=== PATIENT | female | born 1980 | race Caucasian/White ===

== ENCOUNTER 2018-04-08 19:00 | Emergency (ER) | payer OTHER ==
[~2018-04-08] VITALS: Ht 162.6 cm; Wt 107.5 kg
[2018-04-08 19:12] VITALS: BP 155/96
[2018-04-08] MEDS ORDERED: KETOROLAC 60 MG/2 ML VIAL IM ONE (20:30)
[2018-04-08 21:00] VITALS: BP 150/96
== END 2018-04-08 21:00 | disposition home or self-care (01) ==
LOC: MED 19:00
DX: M54.5 Low back pain (principal); M54.2 Cervicalgia; R07.89 Other chest pain; R10.13 Epigastric pain; V89.2XXA Person injured in unspecified motor-vehicle accident, traffic, initial encounter; Y93.89 Activity, other specified; Y92.410 Unspecified street and highway as the place of occurrence of the external cause; Y99.8 Other external cause status
CPT/HCPCS: 81002; 81025; 96372; 99283; J1885

== ENCOUNTER 2019-04-22 03:50 | Emergency (ER) | payer OTHER ==
[~2019-04-22] VITALS: Ht 162.6 cm; Wt 106.6 kg
[2019-04-22 03:54] VITALS: BP 147/82
--- NOTE | 2019-04-22 04:01 | NUR ---
PT TAKEN TO BED 3
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
--- NOTE | 2019-04-22 04:15 | NUR ---
Dr. Gutiérrez examining patient.
--- NOTE | 2019-04-22 04:17 | NUR ---
REPORTED TO [place] [employer] AND SPOKEN TO [place], [place] [facility] WILL COME TO SEE THE PATIENT.
[2019-04-22] MEDS ORDERED: LIDOCAINE 2% 1000 MG/50 ML VIAL INJ ONE (04:20)
--- NOTE | 2019-04-22 04:36 | NUR ---
DR SANDY AT BEDSIDE PERFORMING PROCEDURE.
[2019-04-22] MEDS ORDERED: IBUPROFEN 800 MG TAB PO ONE (04:45)
[2019-04-22] MEDS ORDERED: BACITRACIN OINT 500 UNITS/GM PKT TP ONE ×2 (04:45→04:48)
--- NOTE | 2019-04-22 04:55 | NUR ---
PT AMBULATED TO RESTROOM WITH STEADY GAIT
--- NOTE | 2019-04-22 05:50 | NUR ---
PT STATES RELIEF OF PAIN. 0/10 AT THIS TIME.
--- NOTE | 2019-04-22 05:57 | NUR ---
[place] [facility] AT BEDSIDE
[2019-04-22 06:05] VITALS: BP 147/82
== END 2019-04-22 06:05 | disposition home or self-care (01) ==
LOC: MED 03:50
DX: S01.111A Laceration without foreign body of right eyelid and periocular area, initial encounter (principal); Y04.0XXA Assault by unarmed brawl or fight, initial encounter; Y93.89 Activity, other specified; Y92.89 Other specified places as the place of occurrence of the external cause; Y99.8 Other external cause status
CPT/HCPCS: 12013; 99283; J2001

== ENCOUNTER 2019-04-26 16:10 | Emergency (ER) | payer OTHER | END 2019-04-26 16:44 | disposition home or self-care (01) | LOC: MED 16:10 | DX: H57.11 Ocular pain, right eye (principal); I10 Essential (primary) hypertension; W22.8XXA Striking against or struck by other objects, initial encounter; Y93.89 Activity, other specified; Y92.89 Other specified places as the place of occurrence of the external cause; Y99.8 Other external cause status | CPT/HCPCS: 99281 ==